=== PATIENT | male | born 1975 | race Caucasian/White ===

== ENCOUNTER 2018-01-29 13:26 | Inpatient (IN) | payer OTHER ==
[2018-01-29] MEDS ORDERED: MAGNESIUM HYDROXIDE 30ML CUP PO (16:30)
[2018-01-29] MEDS ORDERED: NITROGLYCERIN (SL) 0.4 MG TAB SL (16:30)
[2018-01-29] MEDS ORDERED: NACL 0.9% 3 ML SYG IV (16:30)
[2018-01-29] MEDS: SOD CHLORIDE 0.9% 1,000 ML IV (16:46)
[2018-01-29] MEDS: INSULIN ASPART [NOVOLOG] 3 ML PEN SC ×2 (16:49→21:00)
[2018-01-29 18:09] LABS: TROPONIN-I < 0.010 ng/ml (0.000-0.120)
[2018-01-29] MEDS ORDERED: hydrALAzine 20 MG INJ IV (19:00)
[2018-01-29 19:34] LABS: ANION GAP 16 (8-16); BLOOD UREA NITROGEN 74 mg/dl (7-20); CALCIUM 9.6 mg/dl (8.4-10.2); CARBON DIOXIDE 24 mmol/L (21-31); CHLORIDE 102 mmol/L (97-110); CREATININE 2.72 mg/dl (0.61-1.24); GLUCOSE 235 mg/dl (70-220); SODIUM 136 mmol/L (135-144)
[2018-01-29 19:46] LABS: POTASSIUM 6.4 mmol/L (3.5-5.1)
[2018-01-29] MEDS: ATORVASTATIN 40 MG TAB PO (21:43)
[2018-01-29] MEDS: APIXABAN 5 MG TABLET PO (21:44)
[2018-01-29] MEDS: INSULIN GLARGINE [LANTus] (100 UNITS/ML) SYG SC (21:45)
[2018-01-29] MEDS: PATIROMER CALCIUM SORBITEX 16.8 GM PKT PO (22:56)
[2018-01-30] MEDS: ACCU-CHEK XX (00:34)
[2018-01-30] MEDS: ZOLPIDEM 5 MG TAB PO (00:36)
[2018-01-30] MEDS: SOD CHLORIDE 0.9% 1,000 ML IV (01:52)
[2018-01-30 02:49] LABS: POTASSIUM 6.2 mmol/L (3.5-5.1)
[2018-01-30 02:59] LABS: TROPONIN-I 0.011 ng/ml (0.000-0.120)
[2018-01-30] MEDS: DEXTROSE 50% 50 ML SYRINGE IV (03:19)
[2018-01-30] MEDS: INSULIN REGULAR, HUMAN 100 UNIT/1 ML 3ML VIAL IV (03:38)
[2018-01-30 05:43] LABS: ADD MAN DIFF? NO
[2018-01-30 05:56] LABS: WHITE BLOOD COUNT 9.3 10^3/ul (4.8-10.8)
[2018-01-30 05:56] LABS: BASOPHIL # 0.1 10^3/ul (0.0-0.1); BASOPHILS % 0.5 % (0.0-2.0); EOSINOPHILS # 0.4 10^3/ul (0.0-0.5); EOSINOPHILS % 4.5 % (0.0-7.0); HEMATOCRIT 41.9 % (42.0-52.0); HEMOGLOBIN 13.7 g/dl (14.0-18.0); LYMPHOCYTES # 2.6 10^3/ul (0.8-2.9); MEAN CORPUSCULAR HEMOGLOBIN 31.4 pg (29.0-33.0); MEAN CORPUSCULAR HGB CONC 32.7 g/dl (32.0-37.0); MEAN CORPUSCULAR VOLUME 96.1 fl (82.0-101.0); MEAN PLATELET VOLUME 10.4 fl (7.4-10.4); MONOCYTE # 0.8 10^3/ul (0.3-0.9); MONOCYTES % 8.6 % (0.0-11.0); NEUTROPHIL # 5.4 10^3/ul (1.6-7.5); NEUTROPHILS % 57.8 % (39.0-77.0); PLATELET COUNT 177 10^3/UL (140-415); RED BLOOD COUNT 4.36 10^6/ul (4.70-6.10); RED CELL DISTRIBUTION WIDTH 12.2 % (11.5-14.5)
[2018-01-30 06:19] LABS: ANION GAP 16 (8-16); BLOOD UREA NITROGEN 64 mg/dl (7-20); CALCIUM 9.9 mg/dl (8.4-10.2); CARBON DIOXIDE 23 mmol/L (21-31); CHLORIDE 107 mmol/L (97-110); CREATININE 2.52 mg/dl (0.61-1.24); GLUCOSE 174 mg/dl (70-220); MAGNESIUM 1.9 mg/dl (1.7-2.5); PHOSPHORUS 5.3 mg/dl (2.5-4.9); POTASSIUM 5.2 mmol/L (3.5-5.1); SODIUM 141 mmol/L (135-144)
[2018-01-30 06:29] LABS: T3 UPTAKE 34.3 % (23.5-40.5); T4 (THYROXINE) 6.4 ug/dl (5.5-11.0)
[2018-01-30 06:51] LABS: CHOLESTEROL 117 mg/dl (100-200)
[2018-01-30 06:51] LABS: CHOL/HDL RATIO 4.8 RATIO; HDL CHOLESTEROL 24 mg/dl (27-67); LDL CHOLESTEROL,CALCULATED 49 mg/dl; TRIGLYCERIDES 220 mg/dl (0-149)
[2018-01-30 06:54] LABS: HEMOGLOBIN A1C 7.5 % (0-5.9)
[2018-01-30] MEDS: INSULIN ASPART [NOVOLOG] 3 ML PEN SC ×4 (07:45→21:00)
[2018-01-30] MEDS: APIXABAN 5 MG TABLET PO ×2 (08:43→21:02)
[2018-01-30] MEDS: AMLODIPINE 10 MG TAB PO (08:44)
[2018-01-30] MEDS: FUROSEMIDE 40 MG TAB PO (08:45)
[2018-01-30 14:12] LABS: POTASSIUM,URINE RANDOM 28.7 mmol/L (25-125)
[2018-01-30 14:12] LABS: SODIUM,URINE RANDOM 121 mmol/L (30-90)
[2018-01-30] MEDS: INSULIN GLARGINE [LANTus] (100 UNITS/ML) SYG SC (21:05)
[2018-01-30] MEDS: ATORVASTATIN 40 MG TAB PO (21:08)
[2018-01-31] MEDS: ZOLPIDEM 5 MG TAB PO (01:02)
[2018-01-31] MEDS: ACCU-CHEK XX (02:00)
[2018-01-31] MEDS: morphine 2 MG INJ IV (02:46)
[2018-01-31 05:44] LABS: ADD MAN DIFF? NO
[2018-01-31 05:52] LABS: BASOPHIL # 0.1 10^3/ul (0.0-0.1); BASOPHILS % 0.6 % (0.0-2.0); EOSINOPHILS # 0.3 10^3/ul (0.0-0.5); EOSINOPHILS % 3.7 % (0.0-7.0); HEMATOCRIT 39.1 % (42.0-52.0); HEMOGLOBIN 12.9 g/dl (14.0-18.0); LYMPHOCYTES # 2.3 10^3/ul (0.8-2.9); LYMPHOCYTES % 27.5 % (15.0-51.0); MEAN CORPUSCULAR HEMOGLOBIN 31.2 pg (29.0-33.0); MEAN CORPUSCULAR VOLUME 94.7 fl (82.0-101.0); MONOCYTE # 0.8 10^3/ul (0.3-0.9); MONOCYTES % 9.7 % (0.0-11.0); NEUTROPHIL # 4.8 10^3/ul (1.6-7.5); PLATELET COUNT 173 10^3/UL (140-415); RED BLOOD COUNT 4.13 10^6/ul (4.70-6.10); RED CELL DISTRIBUTION WIDTH 12.2 % (11.5-14.5)
[2018-01-31 05:52] LABS: WHITE BLOOD COUNT 8.3 10^3/ul (4.8-10.8)
[2018-01-31 06:48] LABS: ALBUMIN 4.1 g/dl (3.3-4.9); ANION GAP 16 (8-16); BLOOD UREA NITROGEN 64 mg/dl (7-20); CALCIUM 9.4 mg/dl (8.4-10.2); CARBON DIOXIDE 24 mmol/L (21-31); CHLORIDE 107 mmol/L (97-110); CREATININE 2.36 mg/dl (0.61-1.24); GLUCOSE 100 mg/dl (70-220); MAGNESIUM 1.9 mg/dl (1.7-2.5); PHOSPHORUS 5.4 mg/dl (2.5-4.9); POTASSIUM 5.4 mmol/L (3.5-5.1); SODIUM 142 mmol/L (135-144)
[2018-01-31] MEDS: INSULIN ASPART [NOVOLOG] 3 ML PEN SC ×3 (07:41→20:25)
[2018-01-31] MEDS: INSULIN REGULAR, HUMAN 100 UNIT/1 ML 3ML VIAL IVP (09:57)
[2018-01-31] MEDS: DEXTROSE 50% 50 ML SYRINGE IV (09:57)
[2018-01-31] MEDS: FUROSEMIDE 20 MG TAB PO (10:02)
[2018-01-31] MEDS: APIXABAN 5 MG TABLET PO ×2 (10:03→20:18)
[2018-01-31] MEDS ORDERED: GLUCOSE GEL 15 GRAM TUBE PO ×2 (12:30)
[2018-01-31] MEDS ORDERED: DEXTROSE 50% 50 ML SYRINGE IV ×2 (12:30)
[2018-01-31] MEDS ORDERED: GLUCOSE GEL 15 GRAM TUBE BUCCAL (12:30)
[2018-01-31] MEDS ORDERED: GLUCAGON 1 MG INJ IM (12:30)
[2018-01-31] MEDS: ATORVASTATIN 40 MG TAB PO (20:17)
[2018-01-31] MEDS: DOCUSATE SODIUM 100 MG CAP PO (20:17)
[2018-01-31] MEDS: INSULIN GLARGINE [LANTus] (100 UNITS/ML) SYG SC (20:25)
[2018-01-31] MEDS: traZODone 50 MG TAB PO (22:31)
[2018-01-31] MEDS: morphine LIQ (10 MG/5 ML) CUP PO (23:55)
[2018-02-01] MEDS: ZOLPIDEM 5 MG TAB PO (01:14)
[2018-02-01 06:14] LABS: ADD MAN DIFF? NO
[2018-02-01 06:22] LABS: WHITE BLOOD COUNT 9.4 10^3/ul (4.8-10.8)
[2018-02-01 06:22] LABS: BASOPHILS % 0.4 % (0.0-2.0); EOSINOPHILS # 0.2 10^3/ul (0.0-0.5); EOSINOPHILS % 2.3 % (0.0-7.0); HEMATOCRIT 36.3 % (42.0-52.0); HEMOGLOBIN 12.1 g/dl (14.0-18.0); LYMPHOCYTES # 2.5 10^3/ul (0.8-2.9); LYMPHOCYTES % 26.1 % (15.0-51.0); MEAN CORPUSCULAR HEMOGLOBIN 31.1 pg (29.0-33.0); MEAN CORPUSCULAR HGB CONC 33.3 g/dl (32.0-37.0); MEAN CORPUSCULAR VOLUME 93.3 fl (82.0-101.0); MEAN PLATELET VOLUME 10.2 fl (7.4-10.4); MONOCYTES % 10.9 % (0.0-11.0); NEUTROPHIL # 5.6 10^3/ul (1.6-7.5); NEUTROPHILS % 59.9 % (39.0-77.0); PLATELET COUNT 165 10^3/UL (140-415); RED BLOOD COUNT 3.89 10^6/ul (4.70-6.10); RED CELL DISTRIBUTION WIDTH 12.2 % (11.5-14.5)
[2018-02-01 06:45] LABS: ANION GAP 17 (8-16); BLOOD UREA NITROGEN 57 mg/dl (7-20); CARBON DIOXIDE 25 mmol/L (21-31); CHLORIDE 104 mmol/L (97-110); CREATININE 2.17 mg/dl (0.61-1.24); GLUCOSE 116 mg/dl (70-220); PHOSPHORUS 5.1 mg/dl (2.5-4.9); POTASSIUM 4.9 mmol/L (3.5-5.1); SODIUM 141 mmol/L (135-144)
[2018-02-01] MEDS: INSULIN ASPART [NOVOLOG] 3 ML PEN SC ×4 (08:00→20:14)
[2018-02-01] MEDS: ONDANSETRON 4 MG INJ IV (08:20)
[2018-02-01] MEDS: FUROSEMIDE 20 MG TAB PO (08:21)
[2018-02-01] MEDS: APIXABAN 5 MG TABLET PO ×2 (08:21→20:14)
[2018-02-01] MEDS ORDERED: CALCIUM CARBONATE 750 MG CHEW TAB PO (10:30)
[2018-02-01] MEDS ORDERED: DOCUSATE SODIUM 100 MG CAP PO (10:30)
[2018-02-01] MEDS: FAMOTIDINE 20 MG TAB PO (11:28)
[2018-02-01] MEDS: MAGNESIUM HYDROXIDE 30ML CUP PO (11:28)
[2018-02-01] MEDS: ACETAMINOPHEN 325 MG TAB PO (16:50)
[2018-02-01] MEDS: ATORVASTATIN 40 MG TAB PO (20:13)
[2018-02-01] MEDS: INSULIN GLARGINE [LANTus] (100 UNITS/ML) SYG SC (20:16)
[2018-02-01] MEDS: traZODone 50 MG TAB PO (20:17)
[2018-02-02] MEDS: ZOLPIDEM 5 MG TAB PO ×2 (00:33→21:23)
[2018-02-02 06:32] LABS: ADD MAN DIFF? NO
[2018-02-02 06:42] LABS: WHITE BLOOD COUNT 9.2 10^3/ul (4.8-10.8)
[2018-02-02 06:42] LABS: BASOPHIL # 0.1 10^3/ul (0.0-0.1); BASOPHILS % 0.6 % (0.0-2.0); EOSINOPHILS # 0.3 10^3/ul (0.0-0.5); EOSINOPHILS % 2.8 % (0.0-7.0); HEMATOCRIT 40.2 % (42.0-52.0); HEMOGLOBIN 13.5 g/dl (14.0-18.0); LYMPHOCYTES # 2.5 10^3/ul (0.8-2.9); LYMPHOCYTES % 26.7 % (15.0-51.0); MEAN CORPUSCULAR HEMOGLOBIN 31.8 pg (29.0-33.0); MEAN CORPUSCULAR HGB CONC 33.6 g/dl (32.0-37.0); MEAN CORPUSCULAR VOLUME 94.6 fl (82.0-101.0); MEAN PLATELET VOLUME 10.3 fl (7.4-10.4); MONOCYTE # 0.9 10^3/ul (0.3-0.9); MONOCYTES % 9.5 % (0.0-11.0); NEUTROPHIL # 5.5 10^3/ul (1.6-7.5); NEUTROPHILS % 59.9 % (39.0-77.0); PLATELET COUNT 182 10^3/UL (140-415); RED BLOOD COUNT 4.25 10^6/ul (4.70-6.10); RED CELL DISTRIBUTION WIDTH 11.9 % (11.5-14.5)
[2018-02-02 07:05] LABS: ALBUMIN 4.3 g/dl (3.3-4.9); ANION GAP 18 (8-16); BLOOD UREA NITROGEN 46 mg/dl (7-20); CALCIUM 9.4 mg/dl (8.4-10.2); CARBON DIOXIDE 28 mmol/L (21-31); CHLORIDE 100 mmol/L (97-110); CREATININE 2.08 mg/dl (0.61-1.24); GLUCOSE 116 mg/dl (70-220); MAGNESIUM 2.3 mg/dl (1.7-2.5); PHOSPHORUS 4.7 mg/dl (2.5-4.9); POTASSIUM 4.9 mmol/L (3.5-5.1); SODIUM 141 mmol/L (135-144)
[2018-02-02] MEDS: INSULIN ASPART [NOVOLOG] 3 ML PEN SC ×4 (08:00→21:00)
[2018-02-02] MEDS: MAGNESIUM HYDROXIDE 30ML CUP PO (08:25)
[2018-02-02] MEDS: ONDANSETRON 4 MG INJ IV (08:25)
[2018-02-02] MEDS: FAMOTIDINE 20 MG TAB PO (08:26)
[2018-02-02] MEDS: APIXABAN 5 MG TABLET PO ×2 (08:26→21:17)
[2018-02-02] MEDS: FUROSEMIDE 20 MG TAB PO (08:27)
[2018-02-02] MEDS: ACETAMINOPHEN 325 MG TAB PO (12:11)
[2018-02-02] MEDS: traZODone 50 MG TAB PO (21:16)
[2018-02-02] MEDS: HYDROCODONE/APAP (5/325) TAB PO (21:23)
[2018-02-02] MEDS: ATORVASTATIN 40 MG TAB PO (21:24)
[2018-02-02] MEDS: NA POLYST SULFON 15 GM/60 ML BTL PO (21:24)
[2018-02-02] MEDS: INSULIN GLARGINE [LANTus] (100 UNITS/ML) SYG SC (21:41)
[2018-02-03] MEDS: HYDROCODONE/APAP (5/325) TAB PO ×2 (01:37→02:07)
[2018-02-03 05:53] LABS: ANION GAP 12 (8-16); BLOOD UREA NITROGEN 43 mg/dl (7-20); CALCIUM 8.8 mg/dl (8.4-10.2); CARBON DIOXIDE 29 mmol/L (21-31); CHLORIDE 98 mmol/L (97-110); CREATININE 1.97 mg/dl (0.61-1.24); GLUCOSE 153 mg/dl (70-220); MAGNESIUM 2.2 mg/dl (1.7-2.5); PHOSPHORUS 3.9 mg/dl (2.5-4.9); POTASSIUM 4.4 mmol/L (3.5-5.1); SODIUM 135 mmol/L (135-144)
[2018-02-03] MEDS: INSULIN ASPART [NOVOLOG] 3 ML PEN SC ×4 (07:33→20:41)
[2018-02-03] MEDS: FUROSEMIDE 20 MG TAB PO (08:34)
[2018-02-03] MEDS: MAGNESIUM HYDROXIDE 30ML CUP PO (08:34)
[2018-02-03] MEDS: FAMOTIDINE 20 MG TAB PO (08:34)
[2018-02-03] MEDS: APIXABAN 5 MG TABLET PO ×2 (08:34→20:38)
[2018-02-03] MEDS: ONDANSETRON 4 MG INJ IV (08:38)
[2018-02-03] MEDS: METOCLOPRAMIDE 10 MG INJ IV (12:35)
[2018-02-03] MEDS: LACTULOSE 30ML CUP PO (12:35)
[2018-02-03] MEDS: INSULIN GLARGINE [LANTus] (100 UNITS/ML) SYG SC (20:23)
[2018-02-03] MEDS: traZODone 50 MG TAB PO (20:37)
[2018-02-03] MEDS: ATORVASTATIN 40 MG TAB PO (20:39)
[2018-02-04] MEDS: ACETAMINOPHEN 325 MG TAB PO (01:17)
[2018-02-04] MEDS: ZOLPIDEM 5 MG TAB PO ×2 (02:20→23:34)
[2018-02-04 06:57] LABS: ANION GAP 14 (8-16); BLOOD UREA NITROGEN 44 mg/dl (7-20); CARBON DIOXIDE 28 mmol/L (21-31); CHLORIDE 103 mmol/L (97-110); CREATININE 2.08 mg/dl (0.61-1.24); GLUCOSE 102 mg/dl (70-220); MAGNESIUM 2.4 mg/dl (1.7-2.5); POTASSIUM 4.4 mmol/L (3.5-5.1); SODIUM 141 mmol/L (135-144)
[2018-02-04] MEDS: INSULIN ASPART [NOVOLOG] 3 ML PEN SC ×4 (08:00→21:00)
[2018-02-04] MEDS: FAMOTIDINE 20 MG TAB PO (08:02)
[2018-02-04] MEDS: MAGNESIUM HYDROXIDE 30ML CUP PO (08:02)
[2018-02-04] MEDS: APIXABAN 5 MG TABLET PO ×2 (08:03→21:08)
[2018-02-04] MEDS: FUROSEMIDE 20 MG TAB PO (08:04)
[2018-02-04] MEDS: traZODone 50 MG TAB PO (21:07)
[2018-02-04] MEDS: INSULIN GLARGINE [LANTus] (100 UNITS/ML) SYG SC (21:18)
[2018-02-04] MEDS: ATORVASTATIN 40 MG TAB PO (21:20)
[2018-02-05 05:52] LABS: ALBUMIN 3.5 g/dl (3.3-4.9); ANION GAP 13 (8-16); BLOOD UREA NITROGEN 45 mg/dl (7-20); CALCIUM 9.1 mg/dl (8.4-10.2); CARBON DIOXIDE 31 mmol/L (21-31); CHLORIDE 102 mmol/L (97-110); CREATININE 2.06 mg/dl (0.61-1.24); GLUCOSE 109 mg/dl (70-220); MAGNESIUM 2.3 mg/dl (1.7-2.5); POTASSIUM 4.8 mmol/L (3.5-5.1); SODIUM 141 mmol/L (135-144)
[2018-02-05] MEDS: INSULIN ASPART [NOVOLOG] 3 ML PEN SC ×2 (08:00→12:00)
[2018-02-05] MEDS: FAMOTIDINE 20 MG TAB PO (08:26)
[2018-02-05] MEDS: FUROSEMIDE 20 MG TAB PO (08:26)
[2018-02-05] MEDS: APIXABAN 5 MG TABLET PO (08:26)
[2018-02-05] MEDS: MAGNESIUM HYDROXIDE 30ML CUP PO (08:40)
[2018-02-05] MEDS: LOSARTAN 25 MG TAB PO (12:18)
== END 2018-02-05 16:19 | disposition home or self-care (01) | DRG 313 ==
LOC: 6WM 13:26
PROVIDERS: Internal Medicine
DX: R07.89 Other chest pain (principal); N17.9 Acute kidney failure, unspecified; E87.2 Acidosis; E87.5 Hyperkalemia; I12.9 Hypertensive chronic kidney disease with stage 1 through stage 4 chronic kidney disease, or unspecified chronic kidney disease; E11.22 Type 2 diabetes mellitus with diabetic chronic kidney disease; N18.9 Chronic kidney disease, unspecified; E66.9 Obesity, unspecified; R11.2 Nausea with vomiting, unspecified; Z79.01 Long term (current) use of anticoagulants; Z86.73 Personal history of transient ischemic attack (TIA), and cerebral infarction without residual deficits; Z86.718 Personal history of other venous thrombosis and embolism; Z68.33 Body mass index [BMI] 33.0-33.9, adult
CPT/HCPCS: 76775; 78582; 80048; 80061; 80069; 82306; 82436; 82652; 82962; 83036; 83735; 83970; 84100; 84132; 84133; 84300; 84436; 84479; 84484; 85025; 89190; 93306; 93970; 99217; G0378